=== PATIENT | female | born 1970 | race Caucasian/White ===

== ENCOUNTER 2018-10-20 05:31 | Day surgery (SDC) | payer OTHER ==
[~2018-10-20] VITALS: Ht 154.9 cm; Wt 63.5 kg
--- NOTE | ~2018-10-20 | O ---
[facility] [place] [address] OPERATIVE REPORT Name: ALEX ANGELA Room #: 150-6 [facility] M.R.#: [id number] Admission: 10/20/18 ������������������ Attend Phys: Kaden Melendrez Discharge: ������������������ Date of : 72 Report #: [id number] THIS REPORT FOR: //name// CC: Kaden Duran DATE OF SERVICE: 10/20/2018 PREOPERATIVE DIAGNOSES: Right knee pain, effusion, medial meniscus tear, lateral meniscus tear, chondromalacia. 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 PROCEDURE PERFORMED: Right knee arthroscopy, partial medial and lateral meniscectomies, chondroplasty of lateral and patellofemoral compartments. SURGEON: Kaden Iqbal M.D. DENTISTRY TEACHER: Juliana Newman PA-C. ANESTHESIA: General. FLUIDS: 400 mL crystalloid. ESTIMATED BLOOD LOSS: Approximately 2 mL. TOURNIQUET TIME: Approximately 18 minutes at 300 mmHg. DESCRIPTION OF PROCEDURE: After proper identification of the patient and operative site in preoperative holding area, the operative site was signed by myself. Prophylactic antibiotics given. The patient elected to receive general anesthesia. The patient was brought back to the operative suite after induction of satisfactory general anesthesia per LMA. The right knee was examined. The tourniquet was applied to the upper thigh. Knee demonstrated full and symmetric range of motion, is ligamentously stable. Mild effusion was noted. It was sterilely prepped and draped in usual manner, placed in an arthroscopic leg vargas and it was elevated and exsanguinated with an Esmarch. Tourniquet was inflated to 300 mmHg. A superior medial portal was created for inflow purposes. Joint was inflated by gravity inflow with an arthroscopic pump set at 40 mmHg. An anterolateral and then an anteromedial portal were created using a spinal needle for localization. Examination of suprapatellar pouch, medial and lateral gutters revealed some mildly abundant synovitis; no loose bodies were noted. Some mild patellofemoral fibrillation was noted at the more superior aspect of the patellofemoral joint. This was more superficial and partial thickness in [facility] [address] [place] [address] OPERATIVE REPORT Name: ALEX ANGELA Room #: 150-6 [facility] M.R.#: [id number] Admission: 10/20/18 ������������������ Attend Phys: Kaden Melendrez Discharge: ������������������ Date of : 72 Report #: [id number] nature and was carefully debrided with motorized shaver. Medial compartment of the knee revealed a complex tear of the posterior horn of the medial meniscus that extended into the mid body. Combination of hand and motorized instruments were used to perform a partial medial meniscectomy back to a stable peripheral rim. Some very mild fraying of the most lateral aspect of the medial intercondylar spine and its insertion on the ACL was noted. This area was carefully debrided. The ACL and PCL were intact and were stable to ligamentous exam and probing. Lateral compartment of the knee demonstrated tear of the lateral meniscus. The flap tear was noted anteriorly and there was also tearing in a complex manner that extended primarily in the mid body. A combination of hand and motorized instrumentation was used to perform a partial lateral meniscectomy. Some diffuse fibrillation, fraying and chondral thinning was noted along the more medial aspect of the lateral tibial plateau extending on to the lateral intercondylar spine. Remaining chondral surfaces and meniscus was stable to probing. Knee was thoroughly irrigated with normal saline. Portal was closed with simple nylon stitch. A 20 mL 0.2% Naropin was injected to aid in postoperative pain control into and around the incisions and into the knee joint. A sterile compressive dressing was applied. She was awakened and transferred to the recovery room in stable condition. ��������������������������������������������� ���������������������������������������� By: ��������������������������������������������� [id number] Kaden Iqbal MD /nt
[~2018-10-20 05:31] MED LIST: FEOSOL325 M1 PO; GLUCOSAMINE CH1 EAC1 PO; LISINOPRIL5 MG PO; SYNTHROID125 MC1 PO
[2018-10-20 08:34] LABS: HEMATOCRIT 41.9 % (37.0-47.0); HEMOGLOBIN 14.2 gm/dL (12.0-15.0); MCH 30.8 pg (26.0-34.0); MCV 90.8 fL (80.0-100.0); RBC 4.62 mil/uL (4.20-5.00); RDW 14.2 % (10.5-14.5); WBC 5.2 thou/uL (4.0-11.0)
[2018-10-20 09:50] VITALS: BP 141/74
[2018-10-20 12:12] VITALS: BP 141/74
== END 2018-10-20 13:23 | disposition home or self-care (01) ==
LOC: OR 05:31 → TBA 05:32 → OR 10:26
PROVIDERS: Orthopaedic Surgery Sports Medicine
DX: S83.271A Complex tear of lateral meniscus, current injury, right knee, initial encounter (principal); S83.231A Complex tear of medial meniscus, current injury, right knee, initial encounter; M94.261 Chondromalacia, right knee; M25.461 Effusion, right knee; I10 Essential (primary) hypertension; D64.9 Anemia, unspecified; E03.9 Hypothyroidism, unspecified; Z98.890 Other specified postprocedural states; Z79.899 Other long term (current) drug therapy; X58.XXXA Exposure to other specified factors, initial encounter; Y93.89 Activity, other specified; Y92.89 Other specified places as the place of occurrence of the external cause; Y99.8 Other external cause status
CPT/HCPCS: 50010; 50101; 50405; 51038; 54170; 56526; 57103; 57180; 62110; 62900; 70005